=== PATIENT | female | born 1970 | race Caucasian/White ===

== ENCOUNTER → 2016-06-19 | Outpatient (CLI) | payer BC, OTHER ==
[~2016-06-19] MED LIST: CALCTAB5 PO; CHOL20007 PO; CITA10TA4 PO; CYAN10004 SC; DULO60CA44 PO; FLX10 PO; INTE1KIT5 IM; LRS10 PO; PRED20TA PO; PREG100C PO; PRZ/40 PO; TOPI50TA16 PO; TOPI50TA24 PO; TRAM-10 PO; TRAZ50TA35 PO; VIT D
--- NOTE | 2016-06-19 13:26 | DIAGNOSTIC IMAGING REPORT ---
SPLENIC ULTRASOUND CLINICAL HISTORY: Left upper quadrant abdominal pain COMPARISON STUDY: No previous studies for comparison. FINDINGS: The spleen measures 8.3 cm in length. There is a 15 mm cystic lesion within the spleen. There is a tiny adjacent 7 mm complex cystic lesion. IMPRESSION: 1. 15 mm cystic splenic lesion 2. Normal splenic size. Electronically signed by: Dar Starks M.D. 06/19/2016 1:24 PM
== END | disposition home or self-care (01) ==
LOC: C.ULTRBC 12:51
PROVIDERS: ATTEND Family Medicine
DX: R10.12 Left upper quadrant pain (principal); D73.89 Other diseases of spleen

== ENCOUNTER → 2016-06-22 | Outpatient (CLI) | payer OTHER ==
[2016-06-22 13:36] LABS: BASO % 0.4 %; BASO ABS # 0.03 K/uL (0-0.2); COMPLETE YES; EOS % 0.5 %; HEMATOCRIT 43.2 % (37-47); IG% 0.1 %; LYMPH % 30.9 %; LYMPH ABS # 2.29 K/uL (1.2-3.4); MEAN CELL VOLUME 94.1 fL (80-100); MEAN CORPUSCULAR HEMOGLOBIN 33.3 pg (25-34); MEAN CORPUSCULAR HGB CONC 35.4 g/dl (32-36); MEAN PLATELET VOLUME 8.9 fL (7.4-10.4); MONO % 5.4 %; NEUT % 62.7 %; PLATELET COUNT 358 K/uL (130-400); RED BLOOD COUNT 4.59 M/uL (4.2-5.4)
[2016-06-22 14:18] LABS: ALT/SGPT 27 U/L (12-78); AST/SGOT 8 U/L (15-37); BLOOD UREA NITROGEN 11 mg/dl (7-18); BUN/CREATININE RATIO 13.7 (10-20); CALCIUM 8.8 mg/dl (8.5-10.1); CARBON DIOXIDE 21 mmol/L (21-32); CHLORIDE 108 mmol/L (98-107); CREATININE 0.81 mg/dl (0.60-1.20); GLUCOSE 81 mg/dl (70-99); POTASSIUM 3.5 mmol/L (3.5-5.1); SODIUM 139 mmol/L (136-145)
[2016-06-22 14:29] LABS: ALB/GLOB RATIO 1.1 (0.9-2); ALKALINE PHOSPHATASE 58 U/L (45-117)
[2016-06-26 17:32] LABS: IGA SERUM 199 mg/dL (81-463); TIS TRANS IGA 1 U/mL (<4)
== END | disposition home or self-care (01) ==
LOC: C.LAB1850 12:28
PROVIDERS: ATTEND Registered Nurse
DX: R14.0 Abdominal distension (gaseous) (principal)

== ENCOUNTER → 2016-06-25 | Outpatient (CLI) | payer OTHER ==
--- NOTE | 2016-06-25 11:19 | DIAGNOSTIC IMAGING REPORT ---
KUB CLINICAL HISTORY: Sitz marker study day 1. FINDINGS: 2 AP abdominal radiographs are obtained. No prior studies are available for comparison at the time of dictation. Cholecystectomy clips are identified in the right upper quadrant. Numerous Sitz markers project over the stomach. There is no radiographic evidence of bowel obstruction or intraperitoneal free air. Moderate colonic fecal retention is observed. Calcified phleboliths are present in the pelvis. The bony structures appear intact. Mild lumbar levocurvature is observed. IMPRESSION: 1. Numerous Sitz markers project over the stomach. 2. Nonobstructed abdominal bowel gas pattern noting moderate colonic fecal retention. Electronically signed by: Dwight Gentile M.D. 06/25/2016 11:17 AM Dictated Date/Time: 06/25/2016 11:16 AM
== END | disposition home or self-care (01) ==
LOC: C.RAD1850 09:39
PROVIDERS: ATTEND Registered Nurse
DX: R14.0 Abdominal distension (gaseous) (principal)

== ENCOUNTER → 2016-06-27 | Outpatient (CLI) | payer OTHER ==
--- NOTE | 2016-06-27 10:43 | DIAGNOSTIC IMAGING REPORT ---
CHANG CLINICAL HISTORY: Abdominal bloating. Day 2 Sitz Marker Study. COMPARISON STUDY: KUB June 25, 2016. FINDINGS: The Sitz markers are scattered throughout the colon. 5 markers within the right hemipelvis could be within the sigmoid colon or cecum. 5 markers are present within the ascending colon. Numerous markers are noted within the distal transverse colon, hepatic flexure and descending colon. IMPRESSION: Sitz markers located within the colon, as described above. Electronically signed by: Byron Riojas M.D. 06/27/2016 10:41 AM Dictated Date/Time: 06/27/2016 10:39 AM
== END | disposition home or self-care (01) ==
LOC: C.RAD1850 10:07
PROVIDERS: ATTEND Registered Nurse
DX: R14.0 Abdominal distension (gaseous) (principal)

== ENCOUNTER → 2016-07-02 | Day surgery (SDC) | payer BC, OTHER ==
[2016-06-27 11:06] VITALS: BMI 28.0
[~2016-07-02] VITALS: Ht 167.6 cm; Wt 79.5 kg
[~2016-07-02] MED LIST changes: +ATROPINE SULFATE 0.1 MG/ML 5ML SYR IV PRN; -CALCTAB5 PO; +EpHEDrine SULFATE INJ 50 MG/ML AMP IV PRN; -FLX10 PO; +LIDOCAINE HCL 2% 2 ML VIAL (20MG/ML) ONE; -PREG100C PO; +PROPOFOL IV EMULSION 10 MG/ML 20 ML VIAL IV ONE; -PRZ/40 PO; +SODIUM CHLORIDE 0.9% 500ML 500 ML IV ONE; -TRAZ50TA35 PO; -VIT D
[2016-07-02 12:35] VITALS: Ht 167.6 cm; Wt 79.5 kg
--- NOTE | 2016-07-02 13:02 | Endo History and Physical ---
History & Physical Date of Service: Jul 02, 2016. Chief Complaint: abd pain bloating dysphagia Referring Physician: vince joseph History of Present Illness 45 yo CF who presents for EGD secondary to abdominal pain and dysphagia. Past Surgical History Hx Cardiac Surgery: No Hx Internal Defibrillator: No Hx Pacemaker: No Hx Abdominal Surgery: Yes (FREDA, ENDOMETRIAL ABLATION) Hx of Implantable Prosthesis: No Hx Post-Op Nausea and Vomiting: No Hx Cancer Surgery: No Hx Thoracic Surgery: No Hx Orthopedic: No Hx Urinary Tract Surgery: No Family History None Social History Smoking Status: Current Every Day Smoker Hx Substance Use: No Hx Alcohol Use: No Allergies Coded Allergies: Lamotrigine (Verified Allergy, Unknown, RASH, 07/02/16) Current Medications Reported Home Medications Medications Dose Route/Sig Max Daily Dose Days Date Category Dose Instructions Vitamin D3 (Cholecalciferol) 2,000 Unit Tab 10,000 Mg PO HS 06/27/16 Reported Ultram (Tramadol HCl) 50 Mg Tab 50 Mg PO BID PRN 06/27/16 Reported Topamax (Topiramate) 50 Mg Tab 2 Tabs PO HS 06/27/16 Reported Prednisone 20 Mg Tab 20 Mg PO WK 06/27/16 Reported PRIOR TO AVENOX INJECTION Citalopram Hydrobromide 10 Mg Tab 1 Tab PO QAM 06/27/16 Reported Cymbalta (Duloxetine Hcl) 60 Mg Cap 60 Mg PO HS 06/27/16 Reported Vitamin B-12 1000 Mcg (Cyanocobalamin) 1,000 Mcg Tab 1,000 Mcg SC WK 06/27/16 Reported Baclofen 10 Mg Tab 1 Tab PO BID 06/27/16 Reported Avonex Pen (Interferon Beta-1A) 30 Mcg/0.5 Ml Kit 0.5 Ml IM WK 06/27/16 Reported Topamax (Topiramate) 50 Mg Tab 50 Mg PO QAM 12/01/09 Reported Vital Signs Weight (Kilograms): 79.55 Height (Feet): 5 Height (Inches): 6 Date Time Temp Pulse Resp B/P Pulse Ox O2 Delivery O2 Flow Rate FiO2 07/02/16 12:34 36.8 61 18 116/82 96 Room Air Physical Exam General Appearance: WD/WN, no apparent distress Respiratory/Chest: Auscultation: breath sounds normal Cardiovascular: Heart Auscultation: RRR Abdomen: Bowel Sounds: normal Inspection & Palpation: soft, non-distended, no tenderness, guarding & rebound Assessment and Plan Assessment: 45 yo CF who presents for EGD secondary to abdominal pain and dysphagia. Plan: Proceed with colonoscopy.
--- NOTE | 2016-07-02 13:12 | Discharge Instructions ---
Endoscopy Patient Instructions Date / Procedure(s) Performed Jul 02, 2016. EGD Allergy Information Coded Allergies: Lamotrigine (Verified Allergy, Unknown, RASH, 07/02/16) Discharge Date / Findings Jul 02, 2016. Gastritis s/p biopsies Normal esophagus with balloon dilation to 20mm Medication Instructions 1) OK to resume all medications today as prescribed. 2) Start Protonix 40mg by mouth each morning 1/2 hour prior to breakfast. Reported Home Medications Medications Dose Route/Sig Max Daily Dose Days Date Category Dose Instructions Vitamin D3 (Cholecalciferol) 2,000 Unit Tab 10,000 Mg PO HS 06/27/16 Reported Ultram (Tramadol HCl) 50 Mg Tab 50 Mg PO BID PRN 06/27/16 Reported Topamax (Topiramate) 50 Mg Tab 2 Tabs PO HS 06/27/16 Reported Prednisone 20 Mg Tab 20 Mg PO WK 06/27/16 Reported PRIOR TO AVENOX INJECTION Citalopram Hydrobromide 10 Mg Tab 1 Tab PO QAM 06/27/16 Reported Cymbalta (Duloxetine Hcl) 60 Mg Cap 60 Mg PO HS 06/27/16 Reported Vitamin B-12 1000 Mcg (Cyanocobalamin) 1,000 Mcg Tab 1,000 Mcg SC WK 06/27/16 Reported Baclofen 10 Mg Tab 1 Tab PO BID 06/27/16 Reported Avonex Pen (Interferon Beta-1A) 30 Mcg/0.5 Ml Kit 0.5 Ml IM WK 06/27/16 Reported Topamax (Topiramate) 50 Mg Tab 50 Mg PO QAM 12/01/09 Reported Provider Instructions Activity Restrictions - No exercising or heavy lifting for 24 hours. - Do not drink alcohol the day of the procedure. - Do not drive a car or operate machinery until the day after the procedure. - Do not make any important decisions or sign important papers in 24 hours after the procedure. Following Day: - Return to full activity which may include returning to work/school. Diet Start your diet with liquids and light foods (jello, soup, juice, toast). Then eat your usual diet if not nauseated. Treatment For Common After Affects For mild abdominal pain, bloating, or excessive gas: - Rest - Eat lightly - Lie on right side Follow-Up Information Follow-up with vince joseph as scheduled Anesthesia Information What You Should Know You have had a procedure that required some medicine to reduce anxiety and discomfort. This treatment is called moderate sedation. After receiving the treatment, you may be sleepy, but you will be able to breathe on your own. The effects of the treatment may last for several hours. Follow these instructions along with Activity/Diet recommendations noted above: * Do NOT do anything where dizziness or clumsiness would be dangerous. * Rest quietly at home today, then you can be up and about tomorrow. * Have a responsible person stay with you the rest of today. * You may have had an I.V. today. If so, you may take the dressing off later today. Recommendations Call your doctor if: * Trouble breathing * Continuous vomiting for more than 24 hours * Temperature above 101 degrees * Severe abdominal pain or bloating * Pain not relieved by pain medicine ordered * There is increased drainage or redness from any incision * A large amount of rectal bleeding greater than 2-3 tablespoons. (If you had a polyp/s removed or have hemorrhoids, a small amount of blood - from the rectum is to be expected.) * You have any unanswered questions or concerns. IN THE EVENT OF A SERIOUS EMERGENCY, GO TO THE NEAREST EMERGENCY ROOM Your discharge instructions were prepared by provider Boogie Medina. Patient Instructions Signature Page Maty Back Patient (or Guardian) Signature/Date: I have read and understand the instructions given to me by my caregivers. Caregiver/RN/Doctor Signature/Date: The above-named patient and/or guardian has received patient instructions on this date. + Original Patient Signature Page (only) stays with chart. Please make copy for patient.
--- NOTE | 2016-07-02 13:17 | GI REPORT ---
Procedure Date: 07/02/2016 1:04 PM Procedure: Upper GI endoscopy Indications: Abdominal pain in the left upper quadrant, Dysphagia Medicines: Monitored Anesthesia Care Complications: No immediate complications. Estimated Blood Loss: Estimated blood loss: none. Procedure: Pre-Anesthesia Assessment: - Prior to the procedure, a History and Physical was performed, and patient medications and allergies were reviewed. The patient's tolerance of previous anesthesia was also reviewed. The risks and benefits of the procedure and the sedation options and risks were discussed with the patient. All questions were answered, and informed consent was obtained. Prior Anticoagulants: The patient has taken no previous anticoagulant or antiplatelet agents. ASA Grade Assessment: III - A patient with severe systemic disease. After reviewing the risks and benefits, the patient was deemed in satisfactory condition to undergo the procedure. After obtaining informed consent, the endoscope was passed under direct vision. Throughout the procedure, the patient's blood pressure, pulse, and oxygen saturations were monitored continuously. The On-site loaner was introduced through the mouth, and advanced to the second part of duodenum. The upper GI endoscopy was accomplished without difficulty. The patient tolerated the procedure well. Findings: No endoscopic abnormality was evident in the esophagus to explain the patient's complaint of dysphagia. It was decided, however, to proceed with dilation at the gastroesophageal junction. A TTS dilator was passed through the scope. Dilation with an 18-19-20 mm balloon (to a maximum balloon size of 20 mm) dilator was performed. The dilation site was examined and showed no change. Localized mild inflammation characterized by erythema was found in the gastric antrum. Biopsies were taken with a cold forceps for histology. The examined duodenum was normal. Impression: - No endoscopic esophageal abnormality to explain patient's dysphagia. Esophagus dilated. Dilated. - Gastritis. Biopsied. - Normal examined duodenum. Recommendation: - Resume previous diet. - Continue present medications. - Await pathology results. - Return to GI office as previously scheduled. Boogie Medina, DO 07/02/2016 1:16:37 PM This report has been signed electronically. Note Initiated On: 07/02/2016 1:04 PM
--- NOTE | 2016-07-02 13:21 | Anesthesiology Progress Note ---
Anesthesia Post Op Note Date & Time Jul 02, 2016 at 13:21 Vital Signs Vital Signs Past 12 Hours Date Time Temp Pulse Resp B/P Pulse Ox O2 Delivery O2 Flow Rate FiO2 07/02/16 12:34 36.8 61 18 116/82 96 Room Air Notes Mental Status: alert / awake / arousable, participated in evaluation Pt Amnestic to Procedure: Yes Nausea / Vomiting: adequately controlled Pain: adequately controlled Airway Patency, RR, SpO2: stable & adequate BP & HR: stable & adequate Hydration State: stable & adequate Anesthetic Complications: no major complications apparent
[2016-07-02 13:46] VITALS: BP 139/78; PULSE 57; O2SAT 99
== END | disposition home or self-care (01) ==
LOC: C.GI 12:12
PROVIDERS: ATTEND Internal Medicine
DX: K29.50 Unspecified chronic gastritis without bleeding (principal); R13.10 Dysphagia, unspecified; R10.12 Left upper quadrant pain; R14.0 Abdominal distension (gaseous); F17.210 Nicotine dependence, cigarettes, uncomplicated; G35 Multiple sclerosis; K58.9 Irritable bowel syndrome, unspecified; M79.7 Fibromyalgia

== ENCOUNTER → 2018-01-24 | Outpatient (CLI) | payer OTHER ==
[~2018-01-24] MED LIST changes: -ATROPINE SULFATE 0.1 MG/ML 5ML SYR IV PRN; -EpHEDrine SULFATE INJ 50 MG/ML AMP IV PRN; -LIDOCAINE HCL 2% 2 ML VIAL (20MG/ML) ONE; -PROPOFOL IV EMULSION 10 MG/ML 20 ML VIAL IV ONE; -SODIUM CHLORIDE 0.9% 500ML 500 ML IV ONE
[2018-01-24 12:58] LABS: BLOOD UREA NITROGEN 13 mg/dl (7-18); CALCIUM 8.4 mg/dl (8.5-10.1); CARBON DIOXIDE 21 mmol/L (21-32); CHOLESTEROL 168 mg/dl (0-200); CREATININE 0.87 mg/dl (0.60-1.20); GLUCOSE 91 mg/dl (70-99); LDL CHOLESTEROL CALCULATED 111 mg/dl; POTASSIUM 4.3 mmol/L (3.5-5.1); SODIUM 138 mmol/L (136-145)
== END | disposition home or self-care (01) ==
LOC: C.LABPBG 09:52
PROVIDERS: ATTEND Family Medicine
DX: F32.9 Major depressive disorder, single episode, unspecified (principal); Z13.220 Encounter for screening for lipoid disorders